=== PATIENT | female | born 1995 | race African-American/Black ===

== ENCOUNTER 2017-05-08 15:57 | Emergency (ER) | payer MEDICAID, OTHER ==
[~2017-05-08] VITALS: Ht 182.9 cm; Wt 118.0 kg
[~2017-05-08 15:57] MED LIST: MEDR150D9 IM; [UNRECOGNIZED DRUG - OTHER]; [UNRECOGNIZED DRUG - REMARK]
[2017-05-08 15:59] VITALS: BP 125/80
== END 2017-05-08 19:00 | disposition left against medical advice (07) ==
LOC: ER 15:57
DX: Z53.21 Procedure and treatment not carried out due to patient leaving prior to being seen by health care provider (principal); J45.909 Unspecified asthma, uncomplicated

== ENCOUNTER 2024-05-13 06:13 | Emergency (ER) | payer MEDICAID ==
[~2024-05-13] VITALS: Ht 182.9 cm; Wt 138.0 kg
[~2024-05-13 06:13] MED LIST changes: +METO-293 MT; +OMEP40CA20 MT
[2024-05-13 06:19] VITALS: O2SAT 99
[2024-05-13 06:55] LABS: CLARITY URINE CLEAR (CLEAR); COLOR URINE YELLOW (YELLOW); GLUCOSE URINE NEGATIVE (NEGATIVE); KETONES URINE NEGATIVE (NEGATIVE); LEUKOCYTE ESTERASE URINE NEGATIVE (NEGATIVE); NITRITE URINE NEGATIVE (NEGATIVE); OCCULT BLOOD URINE NEGATIVE (NEGATIVE); PROTEIN URINE NEGATIVE (NEGATIVE); SPECIFIC GRAVITY URINE 1.023 (1.005-1.030); UROBILINOGEN URINE 0.2 E.U./dL (0.2-1.0)
[2024-05-13] MEDS: MORPHINE SULFATE 4 MG/ML INJ (FOR IV/IM USE) IV ONE (07:30)
[2024-05-13] MEDS: ONDANSETRON HCL 4MG/2ML INJ IV ONE (07:30)
[2024-05-13] MEDS: LACTATED RINGERS 1,000 ML IV SCH (08:55)
[2024-05-13 08:56] VITALS: TEMP 37.4
[2024-05-13 09:01] LABS: BASOPHILS % 0.5 % (0.0-2.0); HEMOGLOBIN. 12.9 g/dL (12.0-16.0); LYMPHOCYTES % 19.5 % (20.0-50.0); MEAN CORPUSCULAR HEMOGLOBIN 29.9 pg (28.0-32.0); MEAN CORPUSCULAR HGB CONC 32.2 g/dL (31.0-37.0); MEAN CORPUSCULAR VOLUME 92.9 fL (81.0-99.0); MEAN PLATELET VOLUME 8.3 fl (7.4-10.4); MONOCYTES % 7.1 % (2.0-8.0); NEUTROPHILS % 71.9 % (40.0-76.0); PLATELET 275 x1000/uL (130-400); RED CELL DISTRIBUTION WIDTH 14.3 % (11.6-14.6); WHITE BLOOD COUNT 14.9 x1000/uL (4.5-11.0)
[2024-05-13 09:15] LABS: HCG SCREEN NEGATIVE
[2024-05-13 09:17] LABS: CARBON DIOXIDE 26 mEq/L (21-32); CHLORIDE 103 mEq/L (98-107); SODIUM 136 mEq/L (136-145)
[2024-05-13 09:18] LABS: CALCIUM 9.7 mg/dL (8.7-10.4)
[2024-05-13 09:22] LABS: CREATININE 0.8 mg/dL (0.6-1.0); GLUCOSE 112 mg/dL (70-105)
[2024-05-13 09:23] LABS: UREA NITROGEN BLOOD 13 mg/dL (9-23)
[2024-05-13 09:24] LABS: ALANINE AMINOTRANSFERASE 8 IU/L (10-49); ALBUMIN 4.7 g/dL (3.2-4.8); ASPARTATE AMINOTRANSFERASE 10 IU/L (<34)
[2024-05-13 09:25] LABS: BILIRUBIN DIRECT 0.2 mg/dL (<=3.0); BILIRUBIN TOTAL 0.5 mg/dL (0.1-1.0); PROTEIN TOTAL 7.8 g/dL (6.0-8.3)
[2024-05-13 11:00] VITALS: BP 120/81; PULSE 90; RESP 16; O2SAT 98
[2024-05-13] MEDS: KETOROLAC 15MG/ML VIAL IV ONE (11:01)
[2024-05-13] MEDS ORDERED: ONDA-239 PO (11:48)
== END 2024-05-13 12:10 | disposition home or self-care (01) ==
LOC: ER 06:13
DX: R10.30 Lower abdominal pain, unspecified (principal); R11.2 Nausea with vomiting, unspecified; R19.7 Diarrhea, unspecified; J45.909 Unspecified asthma, uncomplicated; Z79.3 Long term (current) use of hormonal contraceptives; Z79.899 Other long term (current) drug therapy; Z90.710 Acquired absence of both cervix and uterus; Z90.722 Acquired absence of ovaries, bilateral
CPT/HCPCS: 99285; 74176; 96374; 76830; 76856; 96375; 96361; 80076; 80048; 81003; 84703; 83690; 85025; 36415; J1885; J2405; J2270

== ENCOUNTER 2024-05-25 00:30 | Emergency (ER) | payer MEDICAID ==
[~2024-05-25] VITALS: Ht 182.9 cm; Wt 119.0 kg
[~2024-05-25 00:30] MED LIST changes: +ONDA-239 PO
[2024-05-25 00:50] VITALS: O2SAT 99
[2024-05-25 01:19] LABS: BASOPHILS % 0.8 % (0.0-2.0); EOSINOPHILS % 2.7 % (0.0-5.0); HEMOGLOBIN. 12.4 g/dL (12.0-16.0); LYMPHOCYTES % 52.5 % (20.0-50.0); MEAN CORPUSCULAR HEMOGLOBIN 30.5 pg (28.0-32.0); MEAN CORPUSCULAR HGB CONC 32.7 g/dL (31.0-37.0); MEAN CORPUSCULAR VOLUME 93.5 fL (81.0-99.0); MEAN PLATELET VOLUME 8.1 fl (7.4-10.4); MONOCYTES % 7.3 % (2.0-8.0); NEUTROPHILS % 36.7 % (40.0-76.0); PLATELET 255 x1000/uL (130-400); RED BLOOD CELL COUNT 4.06 mill/uL (4.2-5.4); RED CELL DISTRIBUTION WIDTH 13.5 % (11.6-14.6); WHITE BLOOD COUNT 6.3 x1000/uL (4.5-11.0)
[2024-05-25 01:24] LABS: CHLORIDE 105 mEq/L (98-107); POTASSIUM 4.1 mEq/L (3.5-5.1); SODIUM 142 mEq/L (136-145)
[2024-05-25 01:25] LABS: CARBON DIOXIDE 30 mEq/L (21-32)
[2024-05-25 01:26] LABS: CALCIUM 8.9 mg/dL (8.7-10.4)
[2024-05-25 01:30] LABS: CREATININE 0.7 mg/dL (0.6-1.0); GLUCOSE 121 mg/dL (70-105)
[2024-05-25 01:31] LABS: UREA NITROGEN BLOOD 13 mg/dL (9-23)
[2024-05-25 01:32] LABS: ALANINE AMINOTRANSFERASE 8 IU/L (10-49); ASPARTATE AMINOTRANSFERASE 11 IU/L (<34)
[2024-05-25 01:33] LABS: BILIRUBIN TOTAL 0.3 mg/dL (0.1-1.0); PROTEIN TOTAL 7.1 g/dL (6.0-8.3)
[2024-05-25 02:50] LABS: CLARITY URINE CLOUDY (CLEAR); COLOR URINE YELLOW (YELLOW); GLUCOSE URINE NEGATIVE (NEGATIVE); KETONES URINE NEGATIVE (NEGATIVE); LEUKOCYTE ESTERASE URINE NEGATIVE (NEGATIVE); NITRITE URINE NEGATIVE (NEGATIVE); OCCULT BLOOD URINE NEGATIVE (NEGATIVE); PROTEIN URINE NEGATIVE (NEGATIVE); SPECIFIC GRAVITY URINE 1.027 (1.005-1.030); UROBILINOGEN URINE 0.2 E.U./dL (0.2-1.0)
[2024-05-25 03:16] LABS: SQUAMOUS EPITHELIAL CELL URINE 1+ /lpf (RARE/1+); WBC URINE 0-2 /hpf (0-2)
[2024-05-25 03:18] LABS: BACTERIA URINE TRACE; RBC URINE NONE SEEN /hpf (0-2)
[2024-05-25 03:19] LABS: AMORPHOUS SEDIMENT URINE 1+ /lpf
[2024-05-25] MEDS: METOCLOPRAMIDE HCL 10MG/2ML VIAL IV ONE (03:51)
[2024-05-25] MEDS: MORPHINE SULFATE 4 MG/ML INJ (FOR IV/IM USE) IV STA (03:52)
[2024-05-25] MEDS ORDERED: METO-293 MT (05:53)
[2024-05-25] MEDS ORDERED: KETO10TA2 MT (05:53)
[2024-05-25 08:06] VITALS: BP 138/97; PULSE 76; RESP 18; TEMP 36.7; O2SAT 100
== END 2024-05-25 08:12 | disposition home or self-care (01) ==
LOC: ER 00:38
DX: N80.9 Endometriosis, unspecified (principal); R10.31 Right lower quadrant pain; R10.32 Left lower quadrant pain; J45.909 Unspecified asthma, uncomplicated; Z90.710 Acquired absence of both cervix and uterus; Z79.899 Other long term (current) drug therapy; Z79.3 Long term (current) use of hormonal contraceptives
CPT/HCPCS: 80053; 81003; 83690; 85025; 36415; 96374; 96375; 99284; J2765; J2270; Z7610; 81025

== ENCOUNTER 2024-08-19 07:09 | Emergency (ER) | payer MEDICAID ==
[~2024-08-19] VITALS: Ht 182.9 cm; Wt 136.0 kg
[~2024-08-19 07:09] MED LIST changes: +KETO10TA2 MT
[2024-08-19 07:14] VITALS: TEMP 36.7; O2SAT 98
[2024-08-19 08:00] VITALS: O2SAT 100
[2024-08-19 08:09] LABS: BASOPHILS % 0.9 % (0.0-2.0); EOSINOPHILS % 4.2 % (0.0-5.0); HEMATOCRIT. 38.9 % (36.0-48.0); HEMOGLOBIN. 12.8 g/dL (12.0-16.0); LYMPHOCYTES % 36.2 % (20.0-50.0); MEAN CORPUSCULAR HEMOGLOBIN 31.3 pg (28.0-32.0); MEAN CORPUSCULAR VOLUME 94.7 fL (81.0-99.0); MEAN PLATELET VOLUME 8.8 fl (7.4-10.4); MONOCYTES % 6.4 % (2.0-8.0); NEUTROPHILS % 52.3 % (40.0-76.0); PLATELET 254 x1000/uL (130-400); RED CELL DISTRIBUTION WIDTH 13.9 % (11.6-14.6); WHITE BLOOD COUNT 7.2 x1000/uL (4.5-11.0)
[2024-08-19] MEDS: SODIUM CHLORIDE 0.9% 1,000 ML IV ONE (08:24)
[2024-08-19 08:25] VITALS: BP 131/80; PULSE 90; RESP 19
[2024-08-19] MEDS: MORPHINE SULFATE 2 MG/ML INJ (NOT FOR IM USE) IV ONE (08:25)
[2024-08-19] MEDS: METOCLOPRAMIDE HCL 10MG/2ML VIAL IV ONE (08:25)
[2024-08-19 08:53] LABS: HCG SCREEN NEGATIVE
== END 2024-08-19 09:19 | disposition left against medical advice (07) ==
LOC: ER 07:09
DX: R10.30 Lower abdominal pain, unspecified (principal); N80.9 Endometriosis, unspecified; J45.909 Unspecified asthma, uncomplicated; Z79.3 Long term (current) use of hormonal contraceptives; Z79.899 Other long term (current) drug therapy; Z90.710 Acquired absence of both cervix and uterus
CPT/HCPCS: 99284; 96374; 96361; 96375; 84703; 85025; 36415; J2765; J2270; J7030

== ENCOUNTER 2024-12-19 03:00 | Emergency (ER) | payer MEDICAID ==
[~2024-12-19] VITALS: Ht 182.9 cm; Wt 136.1 kg
[2024-12-19 03:08] VITALS: O2SAT 97
[2024-12-19] MEDS: KETOROLAC 30MG/ML VIAL IV ONE (03:46)
[2024-12-19] MEDS: METOCLOPRAMIDE HCL 10MG/2ML VIAL IV ONE (03:46)
[2024-12-19] MEDS: MORPHINE SULFATE 4 MG/ML INJ (FOR IV/IM USE) IV ONE (03:47)
[2024-12-19 04:21] LABS: BASOPHILS % 1.0 % (0.0-2.0); EOSINOPHILS % 2.0 % (0.0-5.0); HEMATOCRIT. 39.3 % (36.0-48.0); HEMOGLOBIN. 12.9 g/dL (12.0-16.0); LYMPHOCYTES % 29.0 % (20.0-50.0); MEAN PLATELET VOLUME 8.6 fl (7.4-10.4); MONOCYTES % 5.5 % (2.0-8.0); NEUTROPHILS % 62.5 % (40.0-76.0); PLATELET 259 x1000/uL (130-400); RED BLOOD CELL COUNT 4.16 mill/uL (4.2-5.4); RED CELL DISTRIBUTION WIDTH 13.7 % (11.6-14.6)
[2024-12-19 04:35] LABS: CREATININE 0.7 mg/dL (0.6-1.0); UREA NITROGEN BLOOD 10 mg/dL (9-23)
[2024-12-19 04:37] LABS: ASPARTATE AMINOTRANSFERASE 12 IU/L (<34); BILIRUBIN DIRECT 0.2 mg/dL (<=3.0); BILIRUBIN TOTAL 0.5 mg/dL (0.1-1.0); PROTEIN TOTAL 7.3 g/dL (6.0-8.3)
[2024-12-19 04:48] LABS: CLARITY URINE CLEAR (CLEAR); COLOR URINE YELLOW (YELLOW); GLUCOSE URINE NEGATIVE (NEGATIVE); KETONES URINE NEGATIVE (NEGATIVE); LEUKOCYTE ESTERASE URINE NEGATIVE (NEGATIVE); NITRITE URINE NEGATIVE (NEGATIVE); OCCULT BLOOD URINE NEGATIVE (NEGATIVE); PH URINE 6.5 (4.5-8.0); PROTEIN URINE NEGATIVE (NEGATIVE); SPECIFIC GRAVITY URINE 1.024 (1.005-1.030); UROBILINOGEN URINE 0.2 E.U./dL (0.2-1.0)
[2024-12-19] MEDS ORDERED: KETOROLAC 15MG/ML VIAL IV ONE (05:45)
[2024-12-19 06:04] VITALS: BP 130/64; PULSE 94; RESP 24; TEMP 36.7; O2SAT 100
== END 2024-12-19 06:06 | disposition home or self-care (01) ==
LOC: ER 03:00
DX: R10.20 Pelvic and perineal pain unspecified side (principal); R10.30 Lower abdominal pain, unspecified; R11.2 Nausea with vomiting, unspecified; J45.909 Unspecified asthma, uncomplicated; N80.9 Endometriosis, unspecified; Z79.3 Long term (current) use of hormonal contraceptives; Z90.710 Acquired absence of both cervix and uterus; Z79.899 Other long term (current) drug therapy
CPT/HCPCS: 80076; 80048; 81003; 81025; 83690; 85025; 36415; 96374; 96375; 99284; J1885; J2765; J2270; Z7610